=== PATIENT | female | born 1955 | race Caucasian/White ===

== ENCOUNTER → 2018-01-02 | Day surgery (SDC) | payer OTHER ==
[2017-12-17 11:22] VITALS: Ht 170.2 cm; Wt 129.2 kg
--- NOTE | 2017-12-17 12:04 | PAT Medication Instructions ---
Service Date December 17, 2017. Current Home Medication List Aspirin (Aspirin Ec), 81 MG PO QAM Buspirone Hcl (Buspar), 15 MG PO TID PRN for RN Cholecalciferol (Vitamin D3), 1 TAB PO QAM Clonazepam (Klonopin), 0.5 MG PO BID Cyclobenzaprine Hcl (Flexeril), 10 MG PO TID PRN for PRN Dicyclomine Hcl (Dicyclomine Hcl), 1 TAB PO TID PRN for N Donepezil HCl (Aricept), 10 TAB PO QAM Duloxetine HCl (Cymbalta), 1 CAP PO HS Duloxetine Hcl (Cymbalta), 60 MG PO QAM Furosemide (Lasix), 40 MG PO BID Gabapentin (Neurontin), 300 MG PO TID Levothyroxine Sodium (Levothyroxine Sodium), 1 TAB PO AM Montelukast Sodium (Montelukast Sodium), 1 TAB PO QAM Mupirocin 2% (Bactroban 2%), 1 APPLN EXT UD Oxycodone/Acetaminophen 5MG/325MG (Percocet 5MG/325MG), 1 TABLET PO Q4H PRN for Pain Pantoprazole (Protonix), 40 MG PO QAM Polyethylene Glycol 3350 (Miralax), 17 GM PO QAM Potassium Ext Rel (Klor-Con), 20 MEQ PO QAM Sucralfate (Carafate), 1 GM PO TID PRN for N Topiramate (Topamax), 50 MG PO QAM Zolpidem Tartrate (Zolpidem Tartrate), 1 TAB PO HS Medication Instructions For Your Scheduled Surgery -Check with your surgeon and heart doctor for instructions for: Aspirin (Aspirin Ec), 81 MG PO QAM - Hold the following medications 24 hours prior to surgery: Mupirocin 2% (Bactroban 2%), 1 APPLN EXT UD - Hold the following medications the morning of surgery: Cholecalciferol (Vitamin D3), 1 TAB PO QAM Cyclobenzaprine Hcl (Flexeril), 10 MG PO TID PRN for PRN Dicyclomine Hcl (Dicyclomine Hcl), 1 TAB PO TID PRN for N Furosemide (Lasix), 40 MG PO BID Polyethylene Glycol 3350 (Miralax), 17 GM PO QAM Potassium Ext Rel (Klor-Con), 20 MEQ PO QAM Sucralfate (Carafate), 1 GM PO TID PRN for N - Take the following medications the morning of surgery with a sip of water: Buspirone Hcl (Buspar), 15 MG PO TID PRN for RN (if needed) Clonazepam (Klonopin), 0.5 MG PO BID Donepezil HCl (Aricept), 10 TAB PO QAM Duloxetine Hcl (Cymbalta), 60 MG PO QAM Gabapentin (Neurontin), 300 MG PO TID Levothyroxine Sodium (Levothyroxine Sodium), 1 TAB PO AM Montelukast Sodium (Montelukast Sodium), 1 TAB PO QAM Oxycodone/Acetaminophen 5MG/325MG (Percocet 5MG/325MG), 1 TABLET PO Q4H PRN for Pain (if needed, can be taken up to four hours before surgery) Pantoprazole (Protonix), 40 MG PO QAM Topiramate (Topamax), 50 MG PO QAM - Take the following medications as scheduled the night before surgery: Buspirone Hcl (Buspar), 15 MG PO TID PRN for RN (if needed) Clonazepam (Klonopin), 0.5 MG PO BID Cyclobenzaprine Hcl (Flexeril), 10 MG PO TID PRN for PRN (if needed) Dicyclomine Hcl (Dicyclomine Hcl), 1 TAB PO TID PRN for N (if needed) Duloxetine HCl (Cymbalta), 1 CAP PO HS Furosemide (Lasix), 40 MG PO BID Gabapentin (Neurontin), 300 MG PO TID Oxycodone/Acetaminophen 5MG/325MG (Percocet 5MG/325MG), 1 TABLET PO Q4H PRN for Pain (if needed) Sucralfate (Carafate), 1 GM PO TID PRN for N Zolpidem Tartrate (Zolpidem Tartrate), 1 TAB PO HS If you have any questions please call us at [phone] or [phone] or [phone]
[2017-12-17 12:55] LABS: HEMATOCRIT 35.3 % (37-47); HEMOGLOBIN 11.5 g/dL (12.0-16.0); MEAN CORPUSCULAR HEMOGLOBIN 27.4 pg (25-34); MEAN CORPUSCULAR HGB CONC 32.6 g/dl (32-36); MEAN PLATELET VOLUME 10.1 fL (7.4-10.4); PLATELET COUNT 315 K/uL (130-400); RED CELL DISTRIBUTION WIDTH CV 13.8 % (11.5-14.5); RED CELL DISTRIBUTION WIDTH SD 42.5 fL (36.4-46.3); WHITE BLOOD COUNT 13.27 K/uL (4.8-10.8)
--- NOTE | 2018-01-01 16:44 | History and Physical: Surg Cnt ---
History & Physical Date January 01, 2018. Chief Complaint sinus infections History of Present Illness The patient is a 62 year old female with complaints of chronic sinusitis and polyposis Additional History Hepatic Disease: No Endocrine Disorder: No Kidney Disease: No Hypertension: Yes Heart Disease: No Bleeding Tendencies: No Infectious Diseases: No Allergies Coded Allergies: Amoxicillin (Verified Allergy, Unknown, UNKNOWN, 12/17/17) Bupropion (Verified Allergy, Unknown, UNKNOWN, 12/17/17) Lisinopril (Verified Allergy, Unknown, UNKNOWN, 12/17/17) Sulfamethoxazole w/Trimethoprim (Verified Allergy, Unknown, UNKNOWN, ) Home Medications Scheduled Aspirin (Aspirin Ec), 81 MG PO QAM Cholecalciferol (Vitamin D3), 1 TAB PO QAM Clonazepam (Klonopin), 0.5 MG PO BID Donepezil HCl (Aricept), 10 TAB PO QAM Duloxetine HCl (Cymbalta), 1 CAP PO HS Duloxetine Hcl (Cymbalta), 60 MG PO QAM Furosemide (Lasix), 40 MG PO BID Gabapentin (Neurontin), 300 MG PO TID Levothyroxine Sodium (Levothyroxine Sodium), 1 TAB PO AM Montelukast Sodium (Montelukast Sodium), 1 TAB PO QAM Mupirocin 2% (Bactroban 2%), 1 APPLN EXT UD Pantoprazole (Protonix), 40 MG PO QAM Polyethylene Glycol 3350 (Miralax), 17 GM PO QAM Potassium Ext Rel (Klor-Con), 20 MEQ PO QAM Topiramate (Topamax), 50 MG PO QAM Zolpidem Tartrate (Zolpidem Tartrate), 1 TAB PO HS Scheduled PRN Buspirone Hcl (Buspar), 15 MG PO TID PRN for RN Cyclobenzaprine Hcl (Flexeril), 10 MG PO TID PRN for PRN Dicyclomine Hcl (Dicyclomine Hcl), 1 TAB PO TID PRN for N Oxycodone/Acetaminophen 5MG/325MG (Percocet 5MG/325MG), 1 TABLET PO Q4H PRN for Pain Sucralfate (Carafate), 1 GM PO TID PRN for N Physical Examination Skin: warm/dry, no rash Eyes: normal inspection, EOMI, sclerae normal ENT: normal ENT inspection, pharynx normal Head: normocephalic, atraumatic Neck: supple, no adenopathy, trachea midline Respiratory/Chest: lungs clear, normal breath sounds, no respiratory distress Cardiovascular: regular rate, rhythm, no edema, no murmur Abdomen / GI: normal bowel sounds, non tender Back: normal inspection Extremities: normal inspection, normal range of motion Neurologic/Psych: no motor/sensory deficits, alert, normal reflexes, oriented x 3 Diagnosis chronic sinusitis, polyposis Plan of Treatment endoscopic sinus surgery
[~2018-01-02] VITALS: Ht 170.2 cm; Wt 129.2 kg
[~2018-01-02] MED LIST: ANCEF - ALLERGY NOTED TO ORDERED MEDICATION SCH; ASPI81TA28 PO; ATROPINE SULFATE 0.1 MG/ML 5ML SYR IV PRN; BACITRACIN OINT 15 GM TUBE ONE; BCTCR/30 EXT; BUSP15TA70 PO; CEFAZOLIN 3000MG IV PUSH 22.5 ML IV SCH; CHOL1000 PO; CLON0.5T3 PO; CYCL10TA6 PO; CYM/30 PO; DEXAMETHASONE SOD INJ 4 MG/ML VIAL ONE; DICY20TA10 PO; DONE5TAB9 PO; DULO60CA44 PO; EpHEDrine SULFATE 50MG/5ML SYR ONE; EpINEphrine INJ 1MG/ML AMP 1 MG/ML AMP ONE; FENTANYL CITRATE INJ 50 MCG/1 ML 2 ML VIAL ONE; FRS/40 PO; GABA-113 PO; GELATIN SPONGE 12-7MM ONE; KETOROLAC TROMETHAMINE 30 MG/ML VIAL IV. PRN; LABETALOL HCL IV 5 MG/ML 20ML IV PRN; LACTATED RINGER'S 1000ML 1,000 ML IV SCH; LEVO100T7 PO; LIDO 2%/EPINEPHRINE 1:100000 20 ML VIAL ONE; LIDOCAINE 4% MPF SOAK 5 ML = 1 DOSE ONE; LIDOCAINE HCL 2% 2 ML VIAL (20MG/ML) ONE; MIDAZOLAM HCL 1 MG/ML 2ML VIAL ONE; MONT1TAB5 PO; ONDANSETRON INJ 2 MG/ML 2 ML VIAL IV PRN; ONDANSETRON INJ 2 MG/ML 2 ML VIAL ONE; OXYC-57 PO; OXYCODONE/ACETAMINOPHEN 5-325 TAB PO PRN; PANT40TA PO; POLY335019 PO; POTA-639 PO; PROPOFOL IV EMULSION 10 MG/ML 20 ML VIAL ONE; SODIUM CHLORIDE 0.9% 1000ML 1,000 ML IV SCH; SUCCINYLCHOLINE CHLORIDE 20 MG/ML 10 ML VIAL IV ONE; SUCR1TAB29 PO; TOPI50TA16 PO; ZOLP5TAB6 PO
--- NOTE | 2018-01-02 07:05 | History & Physical Bridge Note ---
H&P Re-Evaluation Bridge Note: I have examined the patient, reviewed the History & Physical and in the interval since the performance of the History & Physical I have noted the following changes of clinical significance: No changes noted
--- NOTE | 2018-01-02 08:38 | [facility] Post Operative Brief Note ---
Immediate Operative Summary Operative Date January 02, 2018. Pre-Operative Diagnosis Chronic Sinusitis, Polyposis Post-Operative Diagnosis same Procedure(s) Performed Endoscopic Sinus Surgery, Right & Left Frontal Sinuses, Right & Left Maxillary Sinuses, Right & Left Total Ethmoidectomies Surgeon Dr. Carissa Norris Nuclear Powerplant Mechanic Surgeon(s) 0 Estimated Blood Loss 50cc Findings Consistent with Post-Op Diagnosis Specimens none Drains None Anesthesia Type General Complication(s) none Disposition Accompanied Pt To Recover: yes Disposition: Recovery Room / PACU Overlapping Procedure I was present for: the critical portions of procedure. I was immediately available: during the entire case
--- NOTE | 2018-01-02 08:40 | Discharge Instructions-SurgCtr ---
Discharge Instructions Date of Service January 02, 2018. Visit Reason for Visit: Chronic Sinusitis Discharge Discharge Diagnosis / Problem: same Discharge Goals Goal(s): Therapeutic intervention Medications Stopped Medications Name(s): Aspirin stopped 12/30/17 Activity Recommendations Activity Limitations: per Instructions/Follow-up section Anesthesia . Post Anesthesia Instructions: If you have had General Anesthesia or IV Sedation: * Do not drive today. * Resume driving when surgeon permits. * Do not make important decisions or sign legal documents today. * Call surgeon for: 1. Temperature elevations greater than 101 degrees F. 2. Uncontrollable pain. 3. Excessive bleeding. 4. Persistent nausea and vomiting. 5. Medication intolerance (nausea, vomiting or rash). * For nausea and vomiting use only clear liquids such as: tea, soda, bouillon until nausea subsides, then gradually increase diet as tolerated. * If you have any concerns or questions, call your surgeon's office. If physician is unavailable and it is an emergency, call 911 or go to the nearest emergency room. . Instructions / Follow-Up Instructions / Follow-Up ACTIVITY RECOMMENDATIONS: * Being up and around is good, but no strenuous activity, heavy lifting or physical exertion for one week. * Keep your head elevated 30 degrees when lying down or sleeping. * Do not blow your nose for 48 hours, sniff back instead. * Avoid hot showers. OVER THE COUNTER MEDICATIONS: * You may use Tylenol * Avoid aspirin or aspirin containing products, e.g. as they may increase bleeding. SPECIAL CARE INSTRUCTIONS: * Expect to have bloody drainage from your nose and/or down your throat for one to three days. Change drip pad as needed. * Begin irrigating your nose with saline solution today, at least six to ten times per day and sniff back to help remove old clots or crust. * You may experience nasal and facial congestion, pain and pressure, this is normal. * Please call with any significant and/or progressive pain, redness, swelling around the eyes, visual changes, fever of 101.5 degrees F, active bleeding or any problems or concerns. * If active bleeding occurs, spray the nose three times at one minute intervals with Afrin spray and call or cell phone: . If unable to reach the doctor, go to the nearest Emergency Department. Special Diet: * Avoid extremely hot fluids. FOLLOW UP VISIT: Follow-up Visit with Dr. Norris If not already scheduled, please call to schedule. Diet Recommendations Home Diet: resume previous diet Procedures Procedures Performed: Endoscopic Sinus Surgery, Right & Left Frontal Sinuses, Right & Left Maxillary Sinuses, Right & Left Total Ethmoidectomies Pending Studies Studies pending at discharge: no Medical Emergencies . Who to Call and When: Medical Emergencies: If at any time you feel your situation is an emergency, please call 911 immediately. . Non-Emergent Contact Non-Emergency issues call your: Primary Care Provider . . "Provider Documentation" section prepared by Georgia Norris. . [place] Drug Monitoring Program Search Results: no issues identified
[2018-01-02] MEDS: FENTANYL CITRATE INJ 50 MCG/1 ML 2 ML VIAL IV PRN ×3 (08:57→09:13)
[2018-01-02 09:20] VITALS: TEMP 36.2
[2018-01-02 09:21] VITALS: BP 110/82; PULSE 74; O2SAT 99
--- NOTE | 2018-01-02 10:11 | Anesthesia Progress Nt - [facility] ---
Anesthesia Post Op Note Date & Time January 02, 2018 at 10:11 Vital Signs Pain Intensity: 4 Vital Signs Past 12 Hours Date Time Temp Pulse Resp B/P (MAP) Pulse Ox O2 Delivery O2 Flow Rate FiO2 01/02/18 09:21 75 12 110/82 99 01/02/18 09:21 74 12 01/02/18 09:20 36.2 73 16 110/82 97 Room Air 01/02/18 09:16 73 13 136/84 97 01/02/18 09:16 73 13 01/02/18 09:12 136/78 01/02/18 09:11 70 19 01/02/18 09:11 69 19 100 01/02/18 09:06 68 17 01/02/18 09:06 68 17 141/89 100 01/02/18 09:01 70 20 01/02/18 09:01 70 20 141/89 100 01/02/18 08:56 68 13 153/85 100 01/02/18 08:56 69 13 01/02/18 08:51 69 15 01/02/18 08:51 69 15 146/93 100 01/02/18 08:46 68 19 01/02/18 08:46 68 19 153/76 100 01/02/18 08:41 74 17 01/02/18 08:41 74 17 143/76 100 01/02/18 08:37 143/98 01/02/18 08:36 36.1 78 12 143/98 97 Humidified Oxygen 6 Mask 01/02/18 06:40 36.3 69 20 134/86 (102) 99 Room Air Notes Mental Status: alert / awake / arousable, participated in evaluation Pt Amnestic to Procedure: Yes Nausea / Vomiting: adequately controlled Pain: adequately controlled Airway Patency, RR, SpO2: stable & adequate BP & HR: stable & adequate Hydration State: stable & adequate Anesthetic Complications: no major complications apparent
--- NOTE | 2018-01-02 10:44 | OPERATIVE REPORT ---
DATE OF OPERATION: 01/02/2018 PREOPERATIVE DIAGNOSIS: Chronic sinusitis. POSTOPERATIVE DIAGNOSIS: Same. PROCEDURES: Right and left frontal sinusotomy, right and left total ethmoidectomy, right and left maxillary sinus antrostomy. SURGEON: Dr. Norris. ANESTHESIA: General with LMA. COMPLICATIONS: None. BLOOD LOSS: 50 mL. HISTORY: This 62-year-old lady presented with recurrent chronic sinusitis, chronic nasal obstruction, balloon sinuplasty in the office did not help. The patient desired definitive treatment. DESCRIPTION OF PROCEDURE: The patient brought to the operating room and placed in supine position. General anesthesia was induced using LMA, prepped, draped in usual sterile manner. The nose was decongested using cottonoids with a solution of 4 mL of 4% Xylocaine mixed with 1 mL of epinephrine. Injection of 2% Xylocaine with 1:100,000 strength epinephrine was also used. BrainLAB device was calibrated, used for the entire procedure. The left nasofrontal duct was cannulated with guidewire dilated using the 6 mm balloon. The guidewire was left in place as a marker for frontal sinusotomy. Frontal sinusotomy was performed using the shaver, coupled with the BrainLAB device, removing the residual anterior wall and the residual posterior wall of the agger nasi cell. At this point, total ethmoidectomy was performed removing significant amount of osteitis and adhesions blocking the ostiomeatal complex, opening up the maxillary ostia, which was blocked by adhesions to its original wide antrostomy and then removing osteitis blocking the posterior ethmoid air cells and then using the shaver to exonerate all the residual posterior and all the anterior ethmoid air cells along with osteitis opening up the ethmoid cavity. The maxillary sinus was probed and noted to have a wide antrostomy opening after removing the adhesions. The nasofrontal duct was redilated and then the balloon was removed and then the contour stent was placed in the left nasofrontal duct. The right nasofrontal duct could not be cannulated initially. Therefore, the frontal sinusotomy was performed by removing the residual anterior wall and the residual posterior wall of the agger nasi cell to identify the nasofrontal duct which was found with the pointer and then found using the guided balloon catheter and then cannulated with the guidewire and then dilated using the 6 mm balloon. At this point, the total ethmoidectomy, and maxillary sinus antrostomy was performed in a similar manner and again contour stent was placed in the nasal frontal duct and then Propel stents were placed in each middle meatus area. The patient tolerated the procedure well and was taken to recovery area in satisfactory condition. I attest to the content of the Intraoperative Record and any orders documented therein. Any exceptions are noted below. YOLIED
== END | disposition home or self-care (01) ==
LOC: X.SURG 06:09
PROVIDERS: ATTEND Otolaryngology
DX: J32.9 Chronic sinusitis, unspecified (principal); F41.9 Anxiety disorder, unspecified; F32.9 Major depressive disorder, single episode, unspecified; I50.9 Heart failure, unspecified; E66.01 Morbid (severe) obesity due to excess calories; N18.3 Chronic kidney disease, stage 3 (moderate); Z68.41 Body mass index [BMI] 40.0-44.9, adult; M19.90 Unspecified osteoarthritis, unspecified site; Z98.84 Bariatric surgery status; Z88.8 Allergy status to other drugs, medicaments and biological substances; Z88.0 Allergy status to penicillin; Z88.1 Allergy status to other antibiotic agents; Z79.82 Long term (current) use of aspirin; Z79.899 Other long term (current) drug therapy; Z90.711 Acquired absence of uterus with remaining cervical stump; Z98.818 Other dental procedure status